=== PATIENT | female | born 1960 | race Caucasian/White ===

== ENCOUNTER 2017-04-26 07:31 | Emergency (ER) | payer MEDICARE, OTHER ==
[~2017-04-26] VITALS: Ht 167.6 cm; Wt 78.5 kg
[~2017-04-26 07:31] MED LIST: AMLODIPINE-BEN1 EAC3 PO; BENADRYL25 M1 PO; COLESTID PO; CYMBALTA60 MG PO; FAMOTIDINE40 MG PEG; FUROSEMIDE20 MG PO; IBUPROFEN200 MG PO; PROMETHAZINE HC25 M1 PO; TOPIRAMATE50 MG PO
[2017-04-26] MEDS ORDERED: ONDANSETRON HCL INJ 2 MG/ML VIAL IV STA (07:49)
[2017-04-26] MEDS ORDERED: MORPHINE SULFATE 4 MG/ML SYR IV STA (07:49)
[2017-04-26] MEDS ORDERED: ACETAMINOPHEN 325 MG TAB PO ONE (08:15)
[2017-04-26 08:37] LABS: BASOPHILS % 0.4 % (0.0-1.0); EOSINOPHILS # (AUTO) 0.1 (0.0-0.4); EOSINOPHILS % 0.5 % (0.0-6.0); HEMATOCRIT 43.5 % (34.2-44.1); HEMOGLOBIN 14.8 g/dL (12.0-16.0); LYMPHOCYTES # (AUTO) 1.5 (1.0-3.2); MEAN CORPUSCULAR HEMOGLOBIN 31.3 pg (28-32); MONOCYTES % 8.8 % (4.4-11.3); NEUTROPHILS # (AUTO) 8.4 (2.1-6.9); NEUTROPHILS % 75.8 % (38.7-80.0); PLATELET COUNT 149 x10e3/uL (140-360); RED BLOOD COUNT 4.73 x10e6/uL (3.6-5.1); RED CELL DISTRIBUTION WIDTH 13.5 % (11.7-14.4)
[2017-04-26 08:38] LABS: BILIRUBIN,URINE 1+ (NEGATIVE); KETONES,URINE NEGATIVE (NEGATIVE); LEUKOCYTE ESTERASE ,URINE 1+ (NEGATIVE); URINE UROBILINOGEN 0.2 mg/dL (0.2 - 1)
[2017-04-26 08:41] LABS: BACTERIA,URINE MANY /HPF; EPITHELIAL CELLS,URINE FEW /LPF; RBC,URINE 0-5 /HPF (0-5)
[2017-04-26 08:42] LABS: NITRITE,URINE POSITIVE (NEGATIVE)
--- NOTE | 2017-04-26 08:42 | Diagnostic Imaging Report ---
CT Abdomen and Pelvis without contrast INDICATION: Left flank pain TECHNIQUE: Thin collimation axial images obtained from the diaphragm to the level of the pubic symphysis without nonionic intravenous contrast. RADIATION DOSE: Total DLP: 572.5 mGy*cm Estimated effective dose: (DLP x 0.015 x size factor) mSv CTDIvol has been reviewed. It is below the limits set by the Radiation Protocol Committee (RPC). COMPARISON: None. ABDOMEN FINDINGS: Lung Bases: Calcified granuloma in the posterior right lower lobe measures 4 mm. Calcified granuloma in the lateral left lower lobe measures 3 mm. Visualized portion of the mediastinum is normal. Liver: Normal in attenuation without mass. Gallbladder: Absent. No ductal dilatation. Pancreas: Normal attenuation without mass. Spleen: Normal size without mass. Adrenal Glands: No evidence for mass. Kidneys: Right: No renal calculus. No cortical mass or hydronephrosis Left: Multiple calculi are clustered in the lower pole measuring up to 4 mm. No collecting system dilatation. Mild perinephric inflammation. No cortical mass. Lymph Nodes: No enlarged abdominal or periaortic lymph nodes.. Aorta: Normal in diameter with atherosclerotic calcifications. PELVIS FINDINGS: Bowel: Small Bowel: Normal in caliber with normal wall thickness. Large Bowel: Diverticulosis coli without associated inflammation. No large bowel wall thickening or dilatation. Appendix: Normal. Bladder: Under distended but otherwise normal. Ureters: No ureteral dilatation. A calcification along the expected course of the left ureter measures 3 mm. There are no calculi along the expected course of the right ureter. The uterus is absent. There are no adnexal masses. Bones: Mild degenerative changes of the lower lumbar spine. There are no lytic or blastic lesions. IMPRESSION: 1. Calculus in the distal left ureter without hydroureteronephrosis. Multiple intrarenal calculi in the left kidney as described above. 2. Mild burden of diverticulosis coli. No evidence for bowel obstruction or inflammation. Normal appendix. 3. Cholecystectomy and hysterectomy. Signed by: Dr. Miko John MD on 04/26/2017 8:39 AM
[2017-04-26 08:43] LABS: CLARITY,URINE CLEAR (CLEAR); COLOR,URINE YELLOW (YELLOW); PROTEIN,URINE DIPSTICK 2+ (NEGATIVE)
[2017-04-26] MEDS ORDERED: DICYCLOMINE HCL10 MG PO (08:52)
[2017-04-26] MEDS ORDERED: NEXIUM40 MG PO (08:52)
[2017-04-26] MEDS ORDERED: SUMATRIPTAN SUC25 MG PO (08:52)
[2017-04-26] MEDS ORDERED: PROAIR HFA INH8.5 GM INH (08:52)
[2017-04-26] MEDS ORDERED: GABAPENTIN100 MG PO (08:52)
[2017-04-26] MEDS ORDERED: CLONIDINE HCL0.1 MG PO (08:52)
[2017-04-26] MEDS ORDERED: DILTIAZEM ER180 MG PO (08:52)
[2017-04-26] MEDS ORDERED: METOPROLOL SUCC25 MG PO (08:52)
[2017-04-26] MEDS ORDERED: ATORVASTATIN CA10 MG PO (08:56)
[2017-04-26 08:58] LABS: ALANINE AMINOTRANSFERASE 19 IU/L (0-55); ALBUMIN 3.5 g/dL (3.5-5.0); ALBUMIN/GLOBULIN RATIO 1.1 (0.8-2.0); ALKALINE PHOSPHATASE 96 IU/L (40-150); ANION GAP 11.3 mmol/L (8-16); BLOOD UREA NITROGEN 13 mg/dL (7-26); BUN/CREATININE RATIO 15 (6-25); CALCIUM 9.8 mg/dL (8.4-10.2); CARBON DIOXIDE 22 mmol/L (22-29); CHLORIDE 108 mmol/L (98-107); CREATININE, SERUM 0.88 mg/dL (0.57-1.11); EST GLOMERULAR FILTRATION RATE > 60 ML/MIN (60-); GLUCOSE 147 mg/dL (74-118); POTASSIUM 3.3 mmol/L (3.5-5.1); SODIUM 138 mmol/L (136-145)
[2017-04-26] MEDS ORDERED: HYDROMORPHONE 1MG/1ML INJ IV ONE (10:00)
[2017-04-26] MEDS ORDERED: HYDROMORPHONE 2MG/ML INJ IV ONE (10:00)
[2017-04-26] MEDS ORDERED: ONDANSETRON HCL INJ 2 MG/ML VIAL IV ONE (10:00)
== END 2017-04-26 10:06 | disposition home or self-care (01) ==
LOC: ER 07:31
DX: R10.9 Unspecified abdominal pain (principal); R11.0 Nausea; N20.1 Calculus of ureter; I10 Essential (primary) hypertension; K21.9 Gastro-esophageal reflux disease without esophagitis; M79.7 Fibromyalgia
CPT/HCPCS: 36415; 74176; 80053; 81001; 85025; 99284; J1170; J2405